=== PATIENT | male | born 1995 | race Caucasian/White ===

== ENCOUNTER 2017-12-01 22:17 | Emergency (ER) | payer SELFPAY ==
[2017-12-01] MEDS ORDERED: Sulfameth/Trimethoprim DS 800-160mg TAB ONE (22:36)
== END 2017-12-01 22:45 | disposition home or self-care (01) ==
LOC: BURERS 22:17
DX: L02.413 Cutaneous abscess of right upper limb (principal); F17.210 Nicotine dependence, cigarettes, uncomplicated
CPT/HCPCS: 99283